=== PATIENT | male | born 1980 | race Caucasian/White ===

== ENCOUNTER 2024-11-23 08:43 | Emergency (ER) | payer OTHER ==
[~2024-11-23] VITALS: Ht 167.6 cm; Wt 79.4 kg
[2024-11-23] MEDS: DIAZEPAM 5 MG TAB PO ONE (09:41)
[2024-11-23] MEDS: HYDROCODONE/APAP 5MG-325MG TAB PO ONE (09:42)
[2024-11-23] MEDS ORDERED: MEDROL4 M2 PO (09:45)
[2024-11-23 10:15] VITALS: PULSE 71; RESP 14; TEMP 97.9; O2SAT 100
== END 2024-11-23 10:15 | disposition home or self-care (01) ==
LOC: ER 09:25
DX: M54.50 Low back pain, unspecified (principal); M62.830 Muscle spasm of back; G89.29 Other chronic pain; K21.9 Gastro-esophageal reflux disease without esophagitis; M43.22 Fusion of spine, cervical region
CPT/HCPCS: 99283

== ENCOUNTER → 2025-06-15 | Day surgery (SDC) | payer BC, OTHER ==
[~2025-06-15] MED LIST: CYCLOBENZAPRINE10 MG PO; FENTANYL CITRATE/PF 100MCG/2 ML INJ ONE; LACTATED RINGER'S 1,000 ML ONE; LIDOCAINE HCL 2% LOCAL INJ 5 ML SDV VIAL INJ ONE; MEDROL4 M2 PO; ROPINIROLE HC0.25 MG PO; ULTRAM 50MG50 MG PO; VOQUEZNA10 MG
[2025-06-15 14:50] VITALS: BP 120/70; PULSE 84; RESP 16; TEMP 97.4; O2SAT 97
== END | disposition home or self-care (01) ==
LOC: OR 10:35
PROVIDERS: ATTEND Internal Medicine Gastroenterology
DX: K29.50 Unspecified chronic gastritis without bleeding (principal); D13.0 Benign neoplasm of esophagus; K20.90 Esophagitis, unspecified without bleeding; K21.9 Gastro-esophageal reflux disease without esophagitis; Z98.1 Arthrodesis status; R03.0 Elevated blood-pressure reading, without diagnosis of hypertension; Z71.89 Other specified counseling; M54.9 Dorsalgia, unspecified; Z01.810 Encounter for preprocedural cardiovascular examination; Z68.30 Body mass index [BMI] 30.0-30.9, adult; Z71.3 Dietary counseling and surveillance; Z87.891 Personal history of nicotine dependence
CPT/HCPCS: 43239; 93005; J2003; J2470; J3010; J7121

== ENCOUNTER 2025-07-02 20:09 | Emergency (ER) | payer OTHER ==
[~2025-07-02 20:09] MED LIST changes: -FENTANYL CITRATE/PF 100MCG/2 ML INJ ONE; -LACTATED RINGER'S 1,000 ML ONE; -LIDOCAINE HCL 2% LOCAL INJ 5 ML SDV VIAL INJ ONE
== END 2025-07-02 20:30 | disposition left against medical advice (07) ==
LOC: FSED 20:28
DX: L02.92 Furuncle, unspecified (principal)